=== PATIENT | male | born 1930 | race Caucasian/White ===

== ENCOUNTER → 2017-03-15 | Outpatient (CLI) | payer OTHER ==
[~2017-03-15] MED LIST: ALPRAZOLAM0.25 MG PO; AMLODIPINE BESYL5 MG PO; ANTI-DIARRHEA2 MG PO; ASPIR 8181 M1 PO; ASPIR-TRIN325 M1 PO; ASPIRIN81 M1 PO; ATIVAN0.5 MG SL; ATORVASTATIN CA40 MG PO; BRIMONIDINE TART5 ML BOTH EYES; BUMETANIDE0.5 MG PO; CALCITRIOL0.25 MC1 PO; CALCITRIOL0.25 MCG PO; CLARITIN,ALAVAR10 MG PO; COLACE100 MG PO; COUMADIN,JANTOVE2 MG PO; COUMADIN1 MG PO; COUMADIN2 MG PO; COUMADIN2.5 MG PO; CRANBERRY425 MG PO; CRESTOR10 MG PO; CRESTOR20 MG PO; DOXYCYCLINE MO100 MG PO; DULCOLAX10 MG PR; DUONEB 2.5-0.5 M3 ML AEROSOL; ENALAPRIL MALEA20 MG PO; ENALAPRIL MALEAT5 M1 PO; FERROUS SULFAT325 MG PO; FINASTERIDE5 M1 PO; FINASTERIDE5 MG PO; FLEET ENEMA-AD118 ML PR; GABAPENTIN100 MG PO; GABAPENTIN300 MG PO; GAS-X125 M1 PO; GLIPIZIDE10 M1 PO; GLIPIZIDE10 MG PO; GLIPIZIDE5 MG PO; Glucotrol PO; HYDROCHLOROTHIA25 MG PO; HYTRIN5 MG PO; KEFLEX500 MG PO; LANTUS 3 M100 UNITS1 SC; LASIX20 MG PO; LATANOPROST2.5 ML RIGHT EYE; LEVAQUIN500 MG PO; LEVOFLOXACIN750 MG PO; LEVSIN-SL0.125 MG SL; LIPITOR40 MG PO; LISINOPRIL2.5 MG PO; LO-DOSE ASPIRIN81 M1 PO; MAALOX, MYLANTA30 ML PO; METOPROLOL SUCC25 MG PO; METOPROLOL TART25 MG PO; MIRALAX119 GM PO; MIRALAX17 GM PO; MIRALAX255 GM PO; MORPHINE CON20 MG/M1 SL; NEURONTIN100 MG PO; NEURONTIN300 MG PO; NITROSTAT,NITR0.4 M1 SL; NORVASC5 MG PO; NOVOLOG 10100 UNITS/ SC; PATADAY2.5 ML BOTH EYES; PHILLIPS'400 MG/5 M PO; PLAVIX75 MG PO; PROSCAR5 MG PO; PYRIDIUM100 MG PO; REQUIP0.25 MG PO; SENNA8.6 MG PO; SYNTHROID50 MCG PO; TAMSULOSIN HCL0.4 MG PO; TERAZOSIN HCL5 MG PO; TRADJENTA5 MG PO; TRAMADOL HCL50 MG PO; TRAVATAN 0100 DROP/5 BOTH EYES; TRAVATAN 050 DROP/2. BOTH EYES; TRUSOPT 2%200 DROP/1 BOTH EYES; TYLENOL EXTRA500 MG PO; TYLENOL REGULA325 MG PO; Trusopt 2% Ophth Sol BOTH EYES; ULTRAM50 MG PO; VASOTEC10 MG PO; VASOTEC5 MG PO; VITAMIN C1000 M1 PO; VITAMIN C500 M6 PO; VITAMIN D-32000 UNI1 PO; VITAMIN D1000 UNIT PO; VITAMIN D32000 UNIT PO; WARFARIN SODIUM2 MG PO; WARFARIN SODIUM3 MG PO; XALATAN 0.50 DROP/2. RIGHT EYE; XALATAN2.5 ML RIGHT EYE
[2017-03-15 12:05] LABS: TYPE OF FLUID THORACENTESIS
[2017-03-15 12:57] LABS: BODY FLUID GLUCOSE 250 MG/DL; BODY FLUID LDH 59 IU/L; BODY FLUID PROTEIN < 3.0 G/DL
[2017-03-15 13:07] LABS: APPEARANCE RED-HAZY; BODY FLUID EOSINOPHILS 0 % (0-25); BODY FLUID RBC'S 22000 /MM^3 (0-100); BODY FLUID WBC'S 642 /MM^3 (0-500); MONONUCLEAR WBC'S 89 %; POLYNUCLEAR WBC'S 11 % (0-25)
== END ==
LOC: RAD 10:56 → EDSTATUS 11:00
PROVIDERS: Nurse Practitioner Family
PROC: 0W9B3ZZ Drainage of Left Pleural Cavity, Percutaneous Approach (ICD-10-PCS; principal; 2017-03-15)
DX: J90 Pleural effusion, not elsewhere classified (principal)
CPT/HCPCS: 76942; 82945; 83615 91; 84157; 87070; 87075; 87205; 88108; 88305; 89051

== ENCOUNTER 2017-03-19 14:13 | Inpatient (IN) | payer OTHER ==
[~2017-03-19] VITALS: Ht 157.5 cm; Wt 91.0 kg
[~2017-03-19 14:13] MED LIST changes: -COUMADIN2 MG PO; -MAALOX, MYLANTA30 ML PO; -MIRALAX119 GM PO; -MORPHINE CON20 MG/M1 SL; -PATADAY2.5 ML BOTH EYES
[2017-03-19 15:06] LABS: BASOPHIL (%) 0.2 % (0-1); EOSINOPHIL (%) 1.1 % (0-5); EOSINOPHIL COUNT 0.1 K/uL (0-0.3); HEMATOCRIT 35.7 % (38.0-50.0); HEMOGLOBIN 10.9 G/DL (12.5-16.6); LYMPHOCYTE (%) 4.6 % (15-42); LYMPHOCYTE COUNT 0.5 K/uL (1.0-2.8); MCH 32.3 PG (29.0-34.0); MCHC 30.5 G/DL (30.0-36.0); MCV 105.9 FL (86-99); MONOCYTE (%) 6.4 % (3-12); MONOCYTE COUNT 0.7 K/uL (0-0.8); NEUTROPHIL (%) 86.7 % (45-76); NEUTROPHIL COUNT 9.7 K/uL (1.8-6.4); PLATELET COUNT 227 K/uL (156-360); RBC DIS.WIDTH-CV 14.7 % (11.8-14.6); RBC DIS.WIDTH-SD 57.1 % (39-53); RED BLOOD COUNT 3.37 M/uL (4.00-5.50); WHITE BLOOD COUNT 11.1 K/uL (4.1-10.2)
[2017-03-19 15:19] LABS: INTER. NORMALIZED RATIO 1.7
[2017-03-19 15:20] LABS: ALBUMIN 2.8 g/dL (3.2-4.8); CHLORIDE 106 mEq/L (99-109)
[2017-03-19 15:21] LABS: MAGNESIUM 2.6 mg/dL (1.3-2.7)
[2017-03-19 15:22] LABS: PTT 36.6 SEC (25-37); SODIUM 138 mEq/L (136-147)
[2017-03-19 15:23] LABS: GLUCOSE 149 mg/dL (70-99); TOTAL PROTEIN 5.5 g/dL (6.4-8.3)
[2017-03-19 15:24] LABS: TOTAL BILIRUBIN 0.2 mg/dL (0.0-1.0)
[2017-03-19 15:26] LABS: ALKALINE PHOSPHATASE 240 IU/L (3-129); GFR ESTIMATE (CALCULATED) 18 mL/min/ (58.99-99999)
[2017-03-19 15:27] LABS: UREA NITROGEN (BUN) 59 mg/dL (9-23)
[2017-03-19 15:28] LABS: AST (GOT) 28 IU/L (2-34)
[2017-03-19 15:29] LABS: ALT (GPT) 33 IU/L (3-49)
[2017-03-19 15:32] LABS: CREATININE 3.4 mg/dL (0.6-1.3)
[2017-03-19 15:35] LABS: TROP-I INTERPRETATION INDETERMINATE; TROPONIN-I 0.49 ng/mL (0.0-0.30)
[2017-03-19] MEDS ORDERED: MIRALAX119 GM PO (16:51)
[2017-03-19] MEDS ORDERED: PATADAY2.5 ML BOTH EYES (16:53)
[2017-03-19] MEDS ORDERED: MAALOX, MYLANTA30 ML PO (16:56)
[2017-03-19] MEDS ORDERED: COUMADIN2 MG PO (16:58)
[2017-03-19] MEDS ORDERED: MORPHINE CON20 MG/M1 SL ×3 (17:00→17:02)
[2017-03-19] MEDS ORDERED: DUONEB 2.5-0.5 M3 ML AEROSOL (17:05)
[2017-03-19] MEDS ORDERED: NOVOLOG 10100 UNITS/ SC (17:19)
[2017-03-19 18:40] VITALS: BP 99/50
[2017-03-19 21:53] LABS: INTER. NORMALIZED RATIO 1.7
[2017-03-19 21:56] LABS: PTT 35.2 SEC (25-37)
[2017-03-19 23:23] VITALS: BP 89/48
[2017-03-20 04:42] LABS: HEMATOCRIT 33.5 % (38.0-50.0); HEMOGLOBIN 10.3 G/DL (12.5-16.6); MCH 32.4 PG (29.0-34.0); MCHC 30.7 G/DL (30.0-36.0); MCV 105.3 FL (86-99); PLATELET COUNT 213 K/uL (156-360); RBC DIS.WIDTH-CV 14.8 % (11.8-14.6); RBC DIS.WIDTH-SD 58.4 % (39-53); RED BLOOD COUNT 3.18 M/uL (4.00-5.50); WHITE BLOOD COUNT 11.7 K/uL (4.1-10.2)
[2017-03-20 04:56] LABS: TROP-I INTERPRETATION POSITIVE; TROPONIN-I 4.79 ng/mL (0.0-0.30)
[2017-03-20 05:00] LABS: INTER. NORMALIZED RATIO 2.2
[2017-03-20 05:42] VITALS: BP 92/56
[2017-03-20 07:19] VITALS: BP 80/43
[2017-03-20 11:50] VITALS: BP 100/48
[2017-03-20 12:57] LABS: CHLORIDE 107 MEQ/L (99-109); CREATININE 3.9 MG/DL (0.6-1.3); GFR ESTIMATE (CALCULATED) 16 mL/min/ (58.99-99999); GLUCOSE 124 mg/dL (70-99); POTASSIUM 5.5 MEQ/L (3.7-5.4); SODIUM 139 MEQ/L (136-147); UREA NITROGEN (BUN) 64 mg/dL (9-23)
[2017-03-20 16:00] VITALS: BP 97/47
[2017-03-20 17:26] LABS: URIC ACID 7.5 mg/dL (3.1-9.2)
[2017-03-20 20:00] VITALS: BP 103/56
[2017-03-20 22:45] LABS: APPEARANCE CLOUDY ((CLEAR)); BILIRUBIN NEGATIVE; BLOOD LARGE; COLOR AMBER ((YELLOW)); GLUCOSE (STRIP) NEGATIVE; KETONES NEGATIVE; LEUKOCYTES MODERATE; NITRITE NEGATIVE; PROTEIN (STRIP) 100; SPECIFIC GRAVITY 1.018 (1.000-1.030); UROBILINOGEN 0.2 MG/DL (0.2-1.0)
[2017-03-20 23:10] VITALS: BP 107/56
[2017-03-20 23:50] LABS: EPITHELIAL CELLS 1+ /HPF; RED BLOOD CELLS 15-20 /HPF (0-5)
[2017-03-20 23:51] LABS: BACTERIA 3+ /HPF; MUCUS 3+ /LPF; UCUL ADDED? YES
[2017-03-21 03:35] VITALS: BP 90/55
[2017-03-21 06:51] LABS: HEMATOCRIT 34.4 % (38.0-50.0); HEMOGLOBIN 10.3 G/DL (12.5-16.6); MCH 31.8 PG (29.0-34.0); MCHC 29.9 G/DL (30.0-36.0); MCV 106.2 FL (86-99); PLATELET COUNT 257 K/uL (156-360); RED BLOOD COUNT 3.24 M/uL (4.00-5.50); WHITE BLOOD COUNT 11.5 K/uL (4.1-10.2)
[2017-03-21 07:04] LABS: INTER. NORMALIZED RATIO 3.2
[2017-03-21 07:11] LABS: INTACT PARATHYROID HORMONE 329 pg/mL (10-69)
[2017-03-21 07:17] LABS: ALBUMIN 2.7 G/DL (3.2-4.8); CHLORIDE 105 MEQ/L (99-109); CREATININE 4.5 MG/DL (0.6-1.3); GFR ESTIMATE (CALCULATED) 13 mL/min/ (58.99-99999); IRON 51 MCG/DL (35-150); PHOSPHORUS 6.9 mg/dL (2.5-4.9); POTASSIUM 4.8 MEQ/L (3.7-5.4); SODIUM 135 MEQ/L (136-147); TRANSFERRIN (TIBC) 168.1 mg/dL (215-380); TRANSFERRIN SATUR. 30 % (20-55); UREA NITROGEN (BUN) 65 mg/dL (9-23)
[2017-03-21 07:20] LABS: GLUCOSE 68 mg/dL (70-99)
[2017-03-21 07:26] LABS: FERRITIN 869 NG/ML (22-322)
[2017-03-21 07:36] VITALS: BP 90/52
== END 2017-03-22 11:28 | DRG 281 ==
LOC: EME 14:13 → 5EAST 17:00 → EDOF 17:00 → ENRESERV 17:03 → 5EAST 18:13 → ENRESERV 19:21 → CANRESERV 19:21 → ENPENDDIS 03-22 11:15 → 5EAST 03-22 11:28
PROVIDERS: Emergency Medicine; Family Medicine; Internal Medicine; Internal Medicine Nephrology
DX: I21.A1 Myocardial infarction type 2 (principal); I95.9 Hypotension, unspecified; I13.0 Hypertensive heart and chronic kidney disease with heart failure and stage 1 through stage 4 chronic kidney disease, or unspecified chronic kidney disease; N17.9 Acute kidney failure, unspecified; E86.1 Hypovolemia; N18.4 Chronic kidney disease, stage 4 (severe); R33.9 Retention of urine, unspecified; E86.0 Dehydration; E78.5 Hyperlipidemia, unspecified; D63.1 Anemia in chronic kidney disease; E11.40 Type 2 diabetes mellitus with diabetic neuropathy, unspecified; E11.22 Type 2 diabetes mellitus with diabetic chronic kidney disease; I25.2 Old myocardial infarction; Z51.5 Encounter for palliative care; Z87.891 Personal history of nicotine dependence; M19.90 Unspecified osteoarthritis, unspecified site; I27.29 Other secondary pulmonary hypertension; I48.91 Unspecified atrial fibrillation; E66.9 Obesity, unspecified; I25.810 Atherosclerosis of coronary artery bypass graft(s) without angina pectoris; I25.10 Atherosclerotic heart disease of native coronary artery without angina pectoris; E87.5 Hyperkalemia; R80.9 Proteinuria, unspecified; I50.810 Right heart failure, unspecified; Z66 Do not resuscitate; Z96.643 Presence of artificial hip joint, bilateral; Z87.01 Personal history of pneumonia (recurrent); Z86.718 Personal history of other venous thrombosis and embolism; Z79.01 Long term (current) use of anticoagulants; Z68.36 Body mass index [BMI] 36.0-36.9, adult; Z95.5 Presence of coronary angioplasty implant and graft; Z87.442 Personal history of urinary calculi; Z86.711 Personal history of pulmonary embolism; Z83.3 Family history of diabetes mellitus; Z82.49 Family history of ischemic heart disease and other diseases of the circulatory system; Z85.828 Personal history of other malignant neoplasm of skin; Z90.49 Acquired absence of other specified parts of digestive tract; J90 Pleural effusion, not elsewhere classified; R53.1 Weakness
CPT/HCPCS: 71045; 76770; 80048; 80053; 80069; 81003; 82140; 82306; 82728; 82948; 83540; 83735; 83880; 83970; 84466; 84484; 84550; 85025; 85027; 85610; 85730; 87077; 87086; 87186; 93005; 93306; 94640; 94640 76; 94799; 99202; 99281; 99285; C1755; J1940; J7030; J7040; P9047